=== PATIENT | female | born 2000 | race Caucasian/White ===

== ENCOUNTER 2021-11-18 08:00 | Outpatient (CLI) | payer BC, OTHER, SELFPAY | END 2021-11-18 08:01 | disposition home or self-care (01) | LOC: ANHAUDASC 08:03 | PROVIDERS: PCP Pediatrics; Visit Provider Nurse Practitioner Family | DX: H93.13 Tinnitus, bilateral (principal) | CPT/HCPCS: 92557; 92567 ==

== ENCOUNTER 2025-07-03 13:13 | Emergency (ER) | payer BC, SELFPAY ==
--- OUTSIDE RECORDS SUMMARY | 2020-12-17 08:00 | XMS_ITS | Continuity of Care Document ---
Author Organization [facility] Address [address] [place] [address] Phone Care Team Providers Care Oxygen Equipment Aide Name Role Phone Ky OSORIO MD, [place] Unavailable Bette vailable Allergies, Adverse Reactions, Alerts Substance Reaction Status Criticality Penicillins Rash Active No Information Procedures Procedure Date Pre Payment Advance Directives Directive Yes / No Effective Date File Name No Information Encounters Encounter Description Practice Location Reason(s) For Visit Diagnoses Date Provider Providers Copied on Encounter [facility], [address] [place] [address], [id number], tel:[phone] [facility] lumbar (chief complaint)g eneral orthopedic (chief complaint) Low back painCervicalgia 1 Ky OSORIO Adarsh er. [address] [facility], [address], [id number] , [place]. tel: [phone] [facility], [address] [place] [address], [id number], [phone] [facility] No Information 1 Ky Altamirano er. [address] [facility], [place] [address], [place], [place], [id number] , [place]. tel: [phone] Family History Family Member Type Diagnosis Age At Onset Mother Problem (finding) Kidney Disease Payers Payer name Insurance type Covered democrat ID Authoriza tion(s) [employer] [id number] Social History Type Description Quantity Date Captured Comments Alcohol Use Details Unknown Caffeine Use Details Unknown Tobacco Use Status No Information Smoking Status Never smoker Non-Smoking Tobacco Use Details : No Details Available : No Details Available Sex Female Vital Signs Date / Time: Height Weight BMI Pulse Rate Blood Pressure Temperature Respiratory Rate Body Surface Area Head Circumference Head Circ. Percentile Wt./Rich. Percentile BMI percentile Pulse Ox Inhaled Ox 2:34 PM 67.00 in 55.338 kg (122.00 lbs) 19.1 1 kg/m eter (2) Chief Complaint And Reason For Visit From encounter dated '12/17/2020 14:00'. lumbar (chief complaint). Description: De comes into the office for an Independent medical exam. general orthopedic (chief complaint). Description: Dr. Victorino McphersonBoard CertifiedOrthopedic Surgeon with Fellowship Training [facility] [address], [address]. [place], [place] [address]RkyjxDe Black is a pleasant 20-year-old female who presents for an independent medical examination regarding a work-related injury sustained on 07/07/2020. She is accompanied by an adult female today. On that date, the patient reports that she was putting away boxes of frozen fish weighing approximately 45 pounds, per her report. She states that she put a box away, and after she twisted and picked up another box, the first box fell and struck her on the lateral aspect of the left leg at the level of the knee. She states that this box fell without her noticing it, and she notes that she did not drop the box she was holding and instead lowered it down normally. The patient reports that she had immediate pain in her low back, and notes that she began to have numbness and pain up her back into her neck approximately 10 minutes later. 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 She was seen at an emergency room after her shift that night, where she wasdiagnosed with a lumbar strain and was given muscle relaxers. The patient reports that the night of injury, she began to have pain in her neck while lying in bed to sleep, worse on the right than theleft. She notes that she did have numbness in her bilateral upper extremities into the hands and fingertips, involving the thumb, index, and ring fingers on the left and the thumb and index finger onthe right. This pain did resolve and has not recurred. The patient also began to experience pain rad iation down her right lower extremity to the knee 1 week following the incident. She reports that after 1 to 2 months of formal physical therapy, her right leg pain has become waxing and waning. Her main complaint since her injury has been mostly low back pain, particularly with long periods of standing and long periods of resting. Today, the patient describes pain primarily in the her low back about the PSIS, as well as in the left hip anteriorly with radiation posteriorly and in the right groin. She denies pain in her lower extremities currently. Prolonged periods of immobility, including standing and sitting, exacerbate her pain complaints. Sitting on surfaces without lumbar support cause s burning pain up her back. Movement does exacerbate her pain complaints, but she states that she is able to ignore it more. The patient reports that she has intermittent pain in the neck, which typically starts on the right before migrating to the left. This has improved for a total of 3 weeks since the injury; otherwise, this pain has been present since that date. She notes that it has improved, but is still present; however, it increased recently following a right rib head dislocation sustained at work while lifting a 10-pound box of catfish. The rib dislocation was reduced by a chiropractor, who told her that this was caused by inflammation in her back as a result of her initial injury. The patient relates that her symptoms of burning pain in the ribs and pain while breathing from the rib dislocation did resolve 1 month following the relocation, apart from occasional aching rib pain.The patient denies seeing any surgeons for her neck or back since her initial injury. She denies undergoing any injections up to this point. Her interventions have largely included formal physical therapy and hemodialysis patient care specialist. She states that she feels that she has improved well with these interventions as she is more mobile than she was following her injury. However, she feelsthat her symptoms have come to a standstill and she is not yet back to normal.The patient is currently working at light duty in the same job position. She states that she has sustained additional injuries at work since 07/2020, including a laceration to the finger and a rib head dislocation on the right. Reason For Referral Reason For Referral No Information History Of Present Illness Encounter Date Complaint History Of Vern ely Illness general orthopedic Dr. Adarsh McphersonBoard Certified Orthopedic Surgeon with Fellowship Training in Spine Surgery[address], [address], [place] [address]MokubDe Black is a pleasant 20-year-old female who presents for an independent medical examination regarding a work-related injury sustained on 07/07/2020. She is accompanied by an adult female today. On that date, the patient reports that she was putting away boxes of frozen fish weighing approximately 45 pounds, per her report. She states that she put a box away, and after she twisted and picked up another box, the first box fell and struck her on the lateral aspect of the left leg at the level of the knee. She states that this box fell without her noticing it, and she notes that she did not drop the box she was holding and instead lowered it down normally. The patient reports that she had immediate pain in her low back, and notes that she began to have numbness and pain up her back into her neck approximately 10 minutes later. 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 She was seen at an emergency room after her shift that night, where she was diagnosed with a lumbar strain and was given muscle relaxers. The patient reports that the night of injury, she began to have pain in her neck while lying in bed to sleep, worse on the right than the left. She notes that she did have numbness in her bilateral upper extremities into the hands and fingertips, involving the thumb, index, and ring fingers on the left and the thumb and index finger on the right. This pain did resolve and has not recurred. The patient also began to experience pain radiation down her right lower extremity to the knee 1 week following the incident. She reports that after 1 to 2 months of formal physical therapy, her right leg pain has become waxing and waning. Her main complaint since her injury has been mostly low back pain, particularly with long periods of standing and long periods of resting. Today, the patient describes pain primarily in the her low back about the PSIS, as well as in the left hip anteriorly with radiation posteriorly and in the right groin. She denies pain in her lower extremities currently. Prolonged periods of immobility, including standing and sitting, exacerbate her pain complaints. Sitting on surfaces without lumbar support causes burning pain up her back. Movement does exacerbate her pain complaints, but she states that she is able to ignore it more. The patient reports that she has intermittent pain in the neck, which typically starts on the right before migrating to the left. This has improved for a total of 3 weeks since the injury; otherwise, this pain has been present since that date. She notes that it has improved, but is still present; however, it increased recently following a right rib head dislocation sustained at work while lifting a 10-pound box of catfish. The rib dislocation was reduced by a chiropractor, who told her that this was caused by inflammation in her back as a result of her initial injury. The patient relates that her symptoms of burning pain in the ribs and pain while breathing from the rib dislocation did resolve 1 month following the relocation, apart from occasional aching rib pain.The patient denies seeing any surgeons for her neck or back since her initial injury. She denies undergoing any injections up to this point. Her interventions have largely included formal physical therapy and hemodialysis patient care specialist. She states that she feels that she has improved well with these interventions as she is more mobile than she was following her injury. However, she feels that her symptoms have come to a standstill and she is not yet back to normal.The patient is currently working at light duty in the same job position. She states that she has sustained additional injuries at work since 07/2020, including a laceration to the finger and a rib head dislocation on the right. sedrick Kc comes into the office for an Independent medical exam. Functional Status Date Functional Assessmen t No Information Instructions Date Instruction Additional Infor gera Plan of Care: De Black is a pleasant 20-year-old female who had an injury in 07/2020 that has resulted in somatic complaints of low back pain with an overall generalized feeling of tightness that persists over the bilateral PSIS, into the right groin, and into the left superior trochanteric region with prolonged periods of immobility. She also describes glywx-yxyqvap-dnph-left neck pain that initially did improve with conservative care, but persists overall. Additionally, the patient reports a secondary injury during her course of recovery when she was lifting a 10 pound box of catfish and suffered a right-sided rib head dislocation, per her report, that was reduced by a chiropractor. This did significantly improve her symptoms, with respect to the new pain around the thoracic region in a thoracic radicular fashion.The medical record documentation of this Provider's service encounter was entered by Michaela Ramírez, acting as Electric Operator for Victorino Mcpherson MD. Related to Low back pain Assessments Type Assessment Date assessment Low back pain assessment Cervicalgia Patient Care Teams Name Effective Dates (start - stop) Status Members No Information
[2025-07-03] VITALS (13 sets, daily range): BP systolic 113–134; BP diastolic 68–79; PULSE 67–86; RESP 15–20; TEMP 36.3; O2SAT 97–100
--- NOTE | ~2025-07-03 | US_ITS ---
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 Findings: Uterus: Uterus anteverted 8.7 x 4.3 x 5.6 cm. IUD noted in appropriate location in the uterine cavity. . Endometrium measures 5 mm. Right Ovary:Right ovary 4 x 2.2 x 2.3 cm, no adnexal mass, no abnormal flow. Left Ovary: Left ovary 6 x 4.5 x 4.1 cm, no adnexal mass, normal flow. There is a large cystic left ovarian lesion measuring 4.5 x 4 cm. Free Fluid: None Impression: 1. IUD in appropriate location. Probable functional left ovarian cyst. Follow-up recommended in 6 weeks to assess resolution Reviewed, dictated and finalized at location P. R MACHINE OPERATOR HELPER Impression: 1. IUD in appropriate location. Probable functional left ovarian cyst. Follow-u p recommended in 6 weeks to assess resolution
--- NOTE | ~2025-07-03 | CT_ITS ---
EXAMINATION: CT abdomen pelvis wo con DATE: 07/03/2025 15:23 INDICATION: Lower abdomen pain. UTI. Hematuria. TECHNIQUE: Computed tomography (CT) of the abdomen and pelvis was performed without intravenous contrast. The dose-length product was 184.96 mGy-cm. Automated exposure control and iterative reconstruction technique were employed. COMPARISON: None. FINDINGS: Lung bases unremarkable. Heart size normal. No significant pleural or pericardial effusion. The liver, spleen, pancreas, adrenal glands and kidneys are unremarkable. Nonobstructive bowel gas pattern. There is an IUD in the uterus. There is a left adnexal cyst measuring 4.7 x 3.4 cm, likely ovarian. Trace free fluid in the pelvis. No free air. Gallbladder is present. No acute osseous abnormality. IMPRESSION: 1. Left adnexal cyst measuring 4.7 cm, likely ovarian. Reviewed, dictated and finalized at location O. MOTIVE MANUFACTURER
[2025-07-03 14:20] LABS: BEDSIDEPREGUCG Negative (Negative)
--- OUTSIDE RECORDS SUMMARY | 2025-07-03 14:27 | XMS_ITS | Clinical Summary ---
Author Organization [facility] Address [address] Attn: Epic Prelude ADT FIDEL YAÑEZ [id number] Care Team Providers Care Coding Quality Coordinator Name Role Phone Unavailable Primary Care Provider Unavailabl e Medications aluminum chloride (Drysol) 20 % Solution Apply to areas of excessive sweating at bedtime 60 mL 6 01/15/2024 6:25 PM CDT 4 Active hydrOXYzine HCL (ATARAX) 25 mg tablet Take 1 tablet by mouth 3 times a day as needed, for panic attacks. 90 Tablet 6 07/15/2024 4:38 PM TANNING CONSULTANT 4 Active escitalopram oxalate (LEXAPRO) 10 mg tablet Take 1 Tablet (10 mg) by mouth daily. 90 Tablet 1 07/15/2024 4:38 PM TANNING CONSULTANT 4 Active buPROPion HCL (WELLBUTRIN XL) 150 mg Extended Release 24 hour tablet Take 1 Tablet (150 mg) by mouth daily. 30 Tablet 6 01/19/2025 1:16 PM CDT 5 Active Social History Tobacco Use Types Packs/Day Years Used Date Smoking Tobacco: Never Assessed Comments Unknown Sex and Gender Information Value Date Recorded Sex Assigned at Not on file Legal Sex Female 3:26 PM CDT Gender Identity Not on file Sexual Orientation Not on file Plan of Treatment Health Maintenance Due Date Last Done Comments HPV VACCINES (1 - 3-dose series) 2015 DTAP/TDAP/TD VACCINES (1 - Tdap) 2019 HEPATITIS B VACCINES (1 of 3 - 19+ 3-dose series) 08/31 CERVICAL CANCER SCREENING 2021 HPV/Cotest (21-29) 2021 PAP SMEAR 2021 INFLUENZA VACCINE (#1) 2025 Insurance RX [employer] (INTERNAL) [facility] [employer] [facility]
--- OUTSIDE RECORDS SUMMARY | 2025-07-03 14:27 | XMS_ITS | Clinical Summary ---
Author Organization [facility] Address [address] [place] [address] Care Team Providers Care Converting Supervisor Name Role Phone Unknown, Provider Primary Care Provider Unavaila ble Source Comments [facility],non-owned Affiliates and Associated Physician Practices is amultiple site organization consisting of ambulatory clinics and hospital sitesin [place], [place], [place] and [place]. This disclosure is being madepursuant to the Care Everywhere program and may not contain all information available regarding this patient. Last updated 18.[facility] Allergies Active Allergy Reactions Criticality Noted Date Comments Acetaminophen Other 05/26/2020 I don't act normal Amoxicillin Rash Medium 05/26/2020 Medications * Be aware that medications may not be up to date on this document. Alwaysverify current medications with the patient. 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 Gender Identity Not on file Sexual Orientation Not on file Last Filed Vital Signs Vital Sign Reading Time Taken Comments Blood Pressure 124/76 06/21/2020 2:40 PM CDT Pulse 66 06/21/2020 2:40 PM CDT Temperature 36.9 C (98.4 F) 06/14/2020 4:19 PM CDT Respiratory Rate 16 06/14/2020 4:19 PM CDT Oxygen Saturation 99% 06/14/2020 4:19 PM CDT Inhaled Oxygen Concentration - - Weight 57.2 kg (126 lb) 06/21/2020 2:40 PM CDT Height 170.2 cm (5' 7) 06/21/2020 2:40 PM CDT Body Mass Index 19.73 06/21/2020 2:40 PM CDT Plan of Treatment Health Maintenance Due Date Last Done Comments HIV SCREENING 2015 HPV VACCINE (1 - 3-dose series) 2015 CHLAMYDIA/GONORRHEA SCREENING 2016 HEPATITIS C SCREENING 09/13/2018 DTAP/TDAP/TD VACCINES (1 - Tdap) 2019 HEPATITIS B VACCINE (1 of 3 - 19+ 3-dose series) 2019 DEPRESSION SCREENING 08/31/2024 COVID-19 VACCINE (1 - 2023-2 5 season) 2025 INFLUENZA VACCINE (#1) 2025 ZOSTER VACCINE (1 of 2) 2050 HIB VACCINE Aged Out No longer eligi ble based on patient's age to complete this topic MENINGOCOCCAL (Group B) VACC INE SHARED DECISION-MAKING Aged Out No longer eligibl e based on patient's age to complete this topic MENINGOCOCCAL GROUPS A/C/Y/W VACCINE Aged Out No longer eligible b ased on patient's age to complete this topic PNEUMOCOCCAL VACCINE Aged Out No long er eligible based on patient's age to complete this topic Insurance [employer] Care Teams Converting Supervisor Relationship Specialty Start Date End Date Unknown, Provider PCP - General 05/26/20
--- OUTSIDE RECORDS SUMMARY | 2025-07-03 14:27 | XMS_ITS | Data Portability ---
Author Organization [facility] Address [address] [place] [address] Assessment Encounter Date Assessment Date Assessment LastModified by Organization Details LastModified Time 11/10/2024 11/10/2024 Annual gynecological exam performed. Patient will come back in a year unless there are new symptoms. [email or web address] Not available 11/10/2024 14:38:59 Plan of Treatment Reminders Order Date Submit Date Provider Last Modified By Organization Details Last Modified Time Details Appointments None recorded. Lab pap, IG + reflex HPV if ASC-U - if hpv positive run subtyping 16, 18/45 2024 025 [facility] (Lab), [address], [place], [address], 5 11:34:19 Referral None recorded. Procedures None recorded. Surgeries None recorded. Imaging US, transvagina l 2020 021 [email or web address] [facility], [address], [address], [place], [address], 20:25:43 Medication Orders None recorded. Patient TargetsNo targets recorded. Patient InstructionsNo instructions recorded. Reason for Referral None Reported. Results Created Date Observation Date Name Description Value Unit Range Abnormal Flag Note LastModifiedBy Organization Detail LastModifiedTime 07/18/20 21 07/18/2021 CT/GC AND TRICH OMONA S VAGIN LIN (RRNA ), SWAB chlamydia trachomatis, PCR Negati ve negati ve Not Available [facility] (Lab) [address], [place], [address], 07/19/2021 15:08:17 07/18/20 21 07/18/2021 CT/GC AND TRICH OMONA S VAGIN LIN (RRNA ), SWAB neisseria gonorrhoeae, PCR Negati ve negati ve Not Available [facility] (Lab) [address], [place], [address], 07/19/2021 15:08:17 07/18/20 21 07/18/2021 CT/GC AND TRICH OMONA S VAGIN LNI (RRNA ), SWAB trichomonas vaginalis ribosomal RNA (rrna) Negati ve negati ve Not Available [facility] (Lab) [address], [place], [address], 07/19/2021 15:08:17 07/18/20 21 07/18/2021 VAGIN ITIS/ VAGIN OSIS, DNA PROBE lyndon sp. detection, direct probe Negati ve negati ve Not Available [facility] (Lab) [address], [place], [address], 07/19/2021 15:08:18 07/18/20 21 07/18/2021 VAGIN ITIS/ VAGIN OSIS, DNA PROBE gardnerella vag. detection, direct probe Negati ve negati ve Not Available [facility] (Lab) [address], [place], [address], 07/19/2021 15:08:18 07/18/20 21 07/18/2021 VAGIN ITIS/ VAGIN OSIS, DNA PROBE trichomonas vag. detection, direct probe Negati ve negati ve Not Available [facility] (Lab) [address], [place], [address], 07/19/2021 15:08:18 08/08/20 21 08/08/2021 IMAGE GUIDE D PAP, REFLE X HPV IF ASCUS ONLY image guided Pap, reflex HPV ASCUS only SEE RESULT S BELOW CASE REPOR T: Cytol ogy Gynec ologi navjot Repor t Case: [id number] Autho rafael angeles Provi olga: Mary Rodrigez, CNJannette Colle cted: 08/08 1537 Order ing Locat ion: [place] Patho betty Steelei preeti: 08/09 0105 First Scree n: Lety Martin, CT Speci men: Scree margaret Pap - Image d, Cervi x STATE MENT OF ADEQU ACY: Satis facto ry for evalu ation Trans forma tion zone compo nent prese nt FINAL DIAGN OSIS: Negat latanya for Intra epith elial Lesio n or Willie mejia (NIL) . Elect kimberly crowley breanne d by Lety Martin, CT on 08/16 at 12:03 AM ----- ----- ----- ----- ----- ----- ----- ----- ----- ----- ----- ----- ----- ----- ----- ----- ----- ---- COMME NT: Note: This speci men was revie wed by a Cytot echno logis t and/o r Patho logis t (as indic ated in this repor t) after evalu ation using the Thinp rep Imagi ng Syste m. CLINI NAVJOT INFOR MATIO N: Menst rual Statu s: LMP (if appli cable ): Clini navjot Histo ry/Pr eviou s Pap: Type of Neopl zeyad (if appli cable ): Signi fican t Clini navjot Findi ngs: Other Histo ry: Hormo kenzie (if appli cable ): PAP EDUCA RODERICK L NOTE: The Pap Test is a scree margaret test with an inher ent false negat latanya rate. Liqui d-bas e sampl ing may decre ase, but will not elimi andra, false negat latanya resul ts. A negat latanya resul t does not precl ude the prese nce and/o r devel opmen t of disea se, since the prese nce of abnor mal cells in the sampl e depen ds on the locat ion of the lesio n and sampl ing techn ique. Aj nued regul ar scree margaret is the best metho d of cance r preve ntion . If repor lisa cytol ogic findi ng do not corre late with physi navjot and/o r histo rical findi ngs, furth er inves tigat ion is recom avery d, as clini ruth strickland nted. Not Available [facility] (Lab) [address], [place], [address], 08/16/2021 01:07:11 09/02/19 22 09/02/2021 BHCG, QUANT ITATI VE B-HCG <0.2 mIU/m L This assay was perfo rmed using [employer] ratio n reage nts and test kits. Value s obtai cathi with other assay metho ds or kits canno t be used inter bonner eably . Refer ence Range s: Non-p regna nt, preme nopau aris women : 0.0-5 .3 mIU/m L Postm enopa usal women : 0.0-7 .0 mIU/m L Mesha l Pregn ezra: Gesta roderick l Age bHCG Conc. - mIU/m L 3 Weeks 5.8 - 71.7 4 Weeks 9.5 - 750 5 Weeks 217-7 138 6 Weeks 158 - 31,79 5 7 Weeks 3,697 - 162,5 63 8 Weeks 32,06 5 - 149,5 71 9 Weeks 63,80 3 - 151,4 10 10 Weeks 46,50 9 - 186,9 77 12 Weeks 27,83 2 - 210,6 12 14 Weeks 13,95 0 - 62,53 0 15 Weeks 12,03 9 - 70,97 1 16 Weeks 9,040 - 56,45 1 17 Weeks 8,175 - 55,86 8 18 Weeks 8,099 - 58,17 6 Not Available [facility] (Lab) [address], [place], [address], 09/03/2021 02:41:13 11/11/19 25 11/10/2024 IMAGE GUIDE D PAP, REFLE X HPV IF ASCUS ONLY image guided Pap, reflex HPV ASCUS only SEE RESULT S BELOW CASE REPOR T: Cytol ogy Gynec ologi navjot Repor t Case: [id number] Autho rafael angeles Provi olga: Georginao rik, Carie , ANP, DIRECTOR OF ONCOLOGY Colle cted: 11/10 1545 Order ing Locat ion: [place] Patho logy Recei preeti: 11/11 1108 First Scree n: Migdalia Syed, CT Speci men: Virginia robles Pap - Image d, Cervi x STATE MENT OF ADEQU ACY: Satis facto ry for evalu ation Trans forma tion zone compo nent prese nt ----- ----- ----- ----- ----- ----- ----- ----- ----- ----- ----- ----- ----- ----- ----- ----- ----- ---- FINAL DIAGN OSIS: Negat latanya for Intra epith elial Lesio n or Willie mejia (NIL) . Elect kimberly mclain by Migdalia Syed, CT on 2024 at 1029 CDT ----- ----- ----- ----- ----- ----- ----- ----- ----- ----- ----- ----- ----- ----- ----- ----- ----- ---- COMME NT: This speci men was revie wed by a Cytot echno logis t and/o r Patho logis t (as indic ated in this repor t) after evalu ation using the Thinp rep Imagi ng Syste m. CLINI NAVJOT INFOR MATIO N: Menst rual Statu s: LMP (if appli cable ): Clini navjot Histo ry/Pr eviou s Pap: Type of Neopl zeyad (if appli cable ): Signi fican t Clini navjot Findi ngs: Other Histo ry: Hormo kenzie (if appli cable ): PAP EDUCA RODERICK L NOTE: The Pap Test is a scree margaret test with an inher ent false negat latanya rate. Liqui d-bas ed sampl ing may decre ase, but will not elimi andra, false negat latanya resul ts. A negat latanya resul t does not precl ude the prese nce and/o r devel opmen t of disea se, since the prese nce of abnor mal cells in the sampl e depen ds on the locat ion of the lesio n and sampl ing techn ique. Aj nued regul ar scree margaret is the best metho d of cance r preve ntion . If repor lisa cytol ogic findi ng do not corre late with physi navjot and/o r histo rical findi ngs, furth er inves tigat ion is recom avery d, as clini ruth warra nted. Not Available [facility] (Lab) [address], [place], [address], 11/16/2024 11:34:19 07/22/20 21 07/22/2021 US, trans vagin al No observ ation record ed. [email or web address] [facility] [address], [place], [address], 07/22/2021 11:46:54 07/22/20 21 07/22/2021 US, trans vagin al No observ ation record ed. [email or web address] [facility] [address], [place], [address], 07/22/2021 20:20:16 Result Notes Documentation Provider Name and Address Organization Details Recorded Time Pap, Ig + Reflex Hpv If Asc-u : ok to file nl no pp frida [facility], [place] - [facility] 08/22/2021 11:55:58 Problems Name Problem SNOMED Code Status Onset Date Resolution Date Notes Provider Name and Address Organization Details Recorded Time Dysmenor gloria 645802744 Completed 201307/17/2021 Dysmenorr hea;Recor ded Elsewhere : No Locati on: [facility] So urce: EHR Chron ic: N Practic e ID: [id number] Bill able Time: 03:00:00 PM Radha Canales [facility] 20:25:24 Speciali zed medical examinat ion Completed 201407/17/2021 Routine gynecolog ical examinati on;Practi ce ID: 0001 Radha Canales [facility] 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 20:25:[address] Concept Completed 201507/17/2021 Encntr for routine child health exam w/o abnormal findings; Recorded Elsewhere : No Locati on: [facility] So urce: EHR Chron ic: N Practic e ID: [id number] Bill able Time: 03:00:00 PM Radha Canales [facility] 20:25:33 Surveill ance of contrace ption Completed 201507/17/2021 Encounter for surveilla nce of contracep tives, unspecifi ed;Record ed Elsewhere : No Locati on: [facility] So urce: EHR Chron ic: N Practic e ID: 0001 Bill able Time: 03:00:00 PM Radha magdaleno [facility] 20:25:43 Vulval tear 349994947 Completed 201607/17/2021 Laceratio n w foreign body of vagina and vulva, init encntr;Pr actice ID: 0001 Radha Canales [facility] 20:25:46 Lacerati on of vagina 147623897 Completed 201607/17/2021 Laceratio n w foreign body of vagina and vulva, init encntr;Pr actice ID: 0001 Radha Canales [facility] 20:25:26 Obstetri c perineal wound disrupti on 149863835 Completed 201607/17/2021 Disruptio n of wound of perineal laceratio n;Recorde d Elsewhere : No Locati on: [facility] So urce: EHR Chron ic: N Practic e ID: 0001 Bill able Time: 01:30:00 PM Radha [facility] 20:25:29 Problem Notes None recorded. Procedures Surgical History Date Name Laterality Status Provider Name and Address Organization Details Recorded Time 09/03/19 22 IUD Insertion completed Rufino Mak MD [address], [place], [address], [facility] 09/03/2021 11:30:53 08/08/20 21 Date of Last Pap Smear completed Malreni Addison [facility] 08/08/2021 14:04:10 07/22/20 21 IUD Removal completed Rufino Mak MD [address], [place], [address], [facility] 07/22/2021 15:26:27 Appendectomy completed Radha Canales [facility] 07/18/2021 10:46:22 Imaging Results None recorded. Procedure Notes None recorded. Medical Equipment None Reported. Allergies Allergen ID Allergen Name Allergen Category Reaction Reaction Severity Criticality Documentation Date Start Date Code Code System Note Provider Name and Address Organization Details Recorded Time 62195 acetamino phen medicatio n nausea mild Not available 07/18/2021 161 RxNorm Radha [facility] 10:44:01 70700 Penicilli n Not available hives moderate Not available 07/18/2021 65937 RxNorm Radha Canales [place], [place] - [facility] 10:44:01 Medications Name Sig Start Date Stop Date Status Note LastModified by Organization Details LastModified Time cyclobenz aprine 10 mg tablet 11/10 completed Not Available Not Available Not Available Mirena 21 mcg/24 hr (up to 8 years) 52 mg intrauter ine device Take by intraute rine route. active Not Available Not Available No t Available Loestrin Fe 09/19 (28-Day) 1 mg-20 mcg (21)/75 mg (7) tablet Take 1 tablet every day by oral route. 08/21 completed Not Available Not Available Not Available Diflucan 150 mg tablet take 1 tablet by oral route once 07/17 completed Prescrib ed Elsewher e: No Locat ion: [facility] odify By: maciej mcintosh DateTime : 11/11/19 01:22:17 PM Not Available Not Available Not Available methocarb santino 750 mg tablet TAKE 1 TABLET BY MOUTH 3 TIMES A DAY FOR 5 DAYS 11/10 completed Not Available Not Available Not Available fluoxetin e 10 mg capsule take 2 capsule by oral route every day 08/05 completed Prescrib ed Elsewher e: Yes Loca tion: [facility] odify By: linsey mcintosh DateTime : 12/02/19 02:30:00 PM Not Available Not Available Not Available hydroxyzi ne HCl 25 mg tablet active Not Available Not Available No t Available ibuprofen 600 mg tablet Take 1 tablet 3 times a day by oral route as needed for 7 days. 08/05 completed Not Available Not Available Not Available escitalop samanta 10 mg tablet active Not Available Not Available Not Available Mononessa (28) 0.25 mg-35 mcg tablet take 1 tablet by oral route every day 04/06 completed Prescrib ed Elsewher e: No Locat ion: [facility] odify By: mino Page [email or web address] DateTime : 01/08/20 17 12:03:17 PM Not Available Not Available Not Available escitalop samanta 5 mg/5 mL oral solution take 10 millilit er by oral route every day 04/09 completed Prescrib ed Elsewher e: Yes Loca tion: [facility] odify By: alok mcintosh DateTime : 03/08/20 15 03:30:00 PM Not Available Not Available Not Available cyclobenz aprine 5 mg tablet Take 1 tablet 3 times a day by oral route as needed for 7 days. 08/05 completed Not Available Not Available Not Available Wellbutri n XL 150 mg 24 hr tablet, extended release Take 1 tablet every day by oral route. active Not Available Not Available No t Available Mirena 08/05 completed Not Available Not Available Not Available Lo Loestrin Fe 1 mg-10 mcg (24)/10 mcg (2) tablet take 1 tablet by oral route every day 07/18 completed Prescrib ed Elsewher e: No Locat ion: [facility] odify By: mino tz Jackou nter DateTime : 12/02/19 19 02:30:00 PM Not Available Not Available Not Available Otezla Starter 11/10 completed Not Available Not Available Not Available Skyrizi 150 mg/mL subcutane ous pen injector active Not Available Not Available Not Available Vitals Date Recorded Body height Body mass index (BMI) Body mass index (BMI) [Percentile] Per age and sex Body weight Systolic And Diastolic Provider Name and Address Organization Details Last Updated DateTime 09/03/2021 167.64 cm 19.4 kg/m2 20 % 31758.0 8 g 110/75 mm[Hg] [facility] 11:23:22 Date Recorded Body height Body mass index (BMI) Body weight Systolic And Diastolic Provider Name and Address Organization Details Last Updated DateTime 09/30/2021 167.64 cm 18.9 kg/m2 73534.31 g 113/77 mm[Hg] [facility] 09/30/2021 10:12:03 Date Recorded Body height Body mass index (BMI) Body weight Systolic And Diastolic Provider Name and Address Organization Details Last Updated DateTime 11/10/2024 172.72 cm 19.2 kg/m2 77681.36 g 115/81 mm[Hg] Lorena Helm [facility] 11/10/2024 14:45:42 Date Recorded Body height Body mass index (BMI) Body mass index (BMI) [Percentile] Per age and sex Body weight Systolic And Diastolic Provider Name and Address Organization Details Last Updated DateTime 07/22/2021 167.64 cm 20 kg/m2 27 % 21231.4 5 g 128/79 mm[Hg] Isabela Wiseman [facility] 15:05:55 Date Recorded Body height Body mass index (BMI) Body mass index (BMI) [Percentile] Per age and sex Body weight Systolic And Diastolic Provider Name and Address Organization Details Last Updated DateTime 08/08/2021 167.64 cm 19.4 kg/m2 20 % 51423.0 8 g 127/80 mm[Hg] Marleni Azael [facility] 12:35:38 Social History Question Answer Notes LastModified by Organizat ion Details LastModified Time Tobacco Smoking Status Never Smoker Isabela Wiseman [facility] 09/30/2021 10:12:08 Do You Have An Advance Directive? No Information n ot available 07/18/2021 Are You Blind Or Do You Have Difficulty Seeing? No Information n ot available 07/17/2021 What Is Your Level Of Caffeine Consumption? Moderate Information not available 07/18/2021 How Much Tobacco Do You Chew? None Information not available 07/18/2021 In The 14 Days Before Symptom Onset, Have You Had Close Contact With A Laboratory-confirm ed COVID-19 While That Case Was Ill? No Information n ot available 07/18/2021 In The 14 Days Before Symptom Onset, Have You Had Close Contact With A Person Who Is Under Investigation For COVID-19 While That Person Was Ill? No Information not available 07/18/2021 Have You Been To An Area Known To Be High Risk For COVID-19? No Information not available 07/18/2021 Are You Deaf Or Do You Have Serious Difficulty Hearing? No Information not available 07/17/2021 What Type Of Diet Are You Following? REGULAR Information n ot available 07/17/2021 What Is The Highest Grade Or Level Of School You Have Completed Or The Highest Degree You Have Received? [id number] [email or web address] Information not available 11/10/2024 Are There Any Guns Present In Your Home? No Information not available 07/18/2021 Do You Use Protection During Sex? Always Information not available 07/18/2021 Do You Use Your Seat Belt Or Car Seat Routinely? Yes Information not available 07/17/2021 Do You Have Smoke And Carbon Monoxide Detectors In Your Home? Yes Information not available 07/17/2021 How Much Tobacco Do You Smoke? No Information not available 07/18/2021 Do You Use Sunscreen Routinely? Yes [email or web address] Information not available 11/10/2024 Have You Used IV Drugs? No Information not available 07/18/2021 Sex: Unknown Functional Status Question Answer Note LastModified by [employer] ion Details LastModified Time Do you use any illicit or recreational drugs? No Information not available 07/17/2021 What is your level of alcohol consumption? None Information not available 07/17/2021 Are you able to walk independently without assistance or assistive devices? [email or web address] Information not available 07/17/2021 What is your occupation? None [email or web address] Information not available 11/10/2024 What is your exercise level? Occasional Information not available 07/18/2021 Mental Status Question Answer Note LastModified by Organization D etails LastModified Time Do you feel stressed (tense, restless, nervous, or anxious, or unable to sleep at night)? [id number] Information not available 11/10/2024 Family History Relationship Description Onset Age of this Age Resolved Age Notes LastModified by Organization Details LastModified Time Maternal Grandfather Hypertensive disorder Not available 2020 10:44:05 Maternal Grandmother Hypertensive disorder Not available 2020 10:44:05 Paternal Grandmother Malignant neoplasm of cervix uteri Not available 20:26:54 Mother Cyst of ovary precan cerous cells Not available 11/10/2024 14:37:59 Paternal Uncle Substance abuse Not available 2020 10:44:05 Medical History Condition Response Urinary Tract Infection Y Gynecological History Statement/Question Response Abnormal Pap N On BCP's at Conception? N N STIs/STDs N Was last menstrual period normal Y HPV Vaccine N 13 Current Control Method IUD Sexually Active? Y N/A Age of first menstrual cycle 13 Date of Last Pap Smear 08/08/2021 Sexual Problems? N Desired Control Method IUD LMP Unknown N Obstetrics History GPAL:G 0 P 0 0 0 0 Past Encounters Encounter ID Performer Location Encounter Start Date Encounter Closed Date Diagnosis/Indication Diagnosis SNOMED-CT Code Diagnosis ICD10 Code Diagnosis IMO Codes Diagnosis Note [id number] Donna Mccain [facility] [address],[facility] [place] [address] 07/18/2021 09:51:52 07/18/2021 11:47:43 Pain in pelvis 64360057 R10.2 Patient is to contact office or go to nearest ED/Urgent care if fever >/= 100.1, pain, excessive bleeding, unusual drainage or swelling in area of concern; or experienci ng worsening sx's or new onset of concerning sx's. Understand ing verbalized . [place]. [id number] Rufino Mak MD [facility] [address],[facility] [place] [address] 07/22/2021 10:10:08 07/22/2021 11:31:20 Mechanical complication of intrauterine contraceptive device 873441702 T83.39XA [id number] Rufino Mak MD [facility] [address] [address] 07/22/2021 14:23:38 07/22/2021 15:29:58 Contraception care management [id number] Z30.9 IUD removal was performed. She tolerated the procedure well. She was given precaution s and instructio ns on control pills. She will have an IUD replaced in 4-8 weeks. [id number] Mary Mckeon CNM [facility] [address] [address] 08/08/2021 12:19:03 08/08/2021 14:13:30 Gynecologic examination 50480566 Z01.419 Z11.3 Z11.8 Take Calcium with Vitamin D 1200mg daily if not receiving in daily diet. It is strongly advised to have an annual flu shot and up can obtain at most pharmacies . If you have not had a TDap shot in the last 10 years you should obtain one as well.Pap done today. Pt is just about a month out from her 21st birthday and has IUD scheduled. Discussed with patient & provided with informatio n regarding Gardisil vaccine to prevent the 4 strains for HPV that cause cervical cancer if under age 26. Encourage safe sexual practices, to use condoms and limit partners if not already in a monogamous relationsh ip. Do monthly self breast exams. Have mammogram yearly or every other year depending on family history. BRCA testing is now available for patients with strong genetic history of female cancer. If interested contact the office. Engage in daily exercise of low impact aerobic exercise 45-60 minutes 4-5 times weekly. Avoid tobacco and illicit drugs as well as using moderation with alcohol intake less than 1-2 8 oz beverages daily. This lifestyle behavior pattern will lead to less health conditions and longer life span. If BMI greater than 25 weight watchers or dietary consult advised. Patient received above stacy peacock, and questions have been answered. If you have any questions please call or respond to this email. Patient was made aware of the patient portal and may obtain a paper copy of today's plan if desired. [id number] Rufino Mak MD [facility] [address] [address] 09/03/2021 10:45:08 09/03/2021 11:41:51 Contraception care management 479072268 Z30.9 IUD removal was performed. She tolerated the procedure well. She was given precaution s and stacy peacock on control pills. She will have an IUD replaced in 4-8 weeks. [id number] Rufino Mak MD [facility] [address] [address] 09/30/2021 09:51:32 09/30/2021 11:10:58 Contraception care management 570686922 Z30.9 This patient is a 21 y/o female who presents for IUD check. She had a IUD inserted approximat luan 1 month ago. She has no complaints . She denies any excessive bleeding or pain. She has had some cramping and some spotting. Otherwise, she feels that is going well and wants to continue her IUd [id number] Rufino Mak MD [facility] [address] [address] 11/10/2024 14:37:45 11/10/2024 15:01:50 Gynecologic examination 65961519 Z01.419 Annual gynecologi navjot exam performed. Patient will come back in a year unless there are new symptoms. Suggest Calcium with Vitamin D if not eating in diet. Patient advised to get annual flu shot. Recommend yearly physicals and perform monthly breast exams. Genetic testing is available for patients with family history of cancer. Engage in safe sexual practices, use condoms. Encouraged to have daily exercise. Avoid tobacco and illicit drugs, moderation of alcohol. If BMI greater than 25 dietary consult advised. If you have any questions please call or email. Pap smear- pap w/ HPV collected laboratory evaluation - PCP STI testing - declined A Mirena IUD prevents for up to 8 years, and also helps with heavy periods for up to 5 years in women who choose an IUD for control. Mirena expires 09/03/2029. Health Concerns Section Related Observation LastModified by Organization Detai ls LastModified Time None Recorded Concern Status LastModified by Organization Details LastModified Time None Recorded Advance Directives Directive N: Payers Insurance Date Sequence Insurance Name Policy Number Policy Marroquin Covered Member ID Marroquin Member ID Guarantor Name 09/02/2021 1 [employer] Waldo Padilla [id number] De Sofia 07/18/2021 1 [employer] [id number] Waldo Padilla [id number] De Sofia 11/09/2024 1 [id number] De Sofia [id number] De Sofia 11/07/2024 [id number] Waldo Padilla [id number] De Sofia 10/27/2024 2 [facility] () [id number] Tree Bullock [id number] De Sofia Notes Date Note Type Note Provider Name and Address Organization Details Recorded Time 1 text/html this patient is a 20-year-old female with an embedded IUD. We agreed to attempt IUD removal today. Rufino Mak MD [address], [place], [address], [facility] 07/22/2021 15:27:24 1 text/html Annual GYNReported by PatientGenitourinary symptomsFor menstrual cycle, patient reportsnormal menses. For urinary symptoms, patient reportsno hematuriaandno incontinence. For vulva, patient reportsno genital lesion. For vagina, patient reportsnormal vaginal discharge.Breast symptomsFor breast, patient reportsno breast pain,no breast lump, andno nipple discharge.Endocrine symptomsFor sexual complaints, patient reportsno sexual complaints,no pain during intercourse, andnormal libido. For menopausal symptoms, patient reportsno menopausal symptomsandnormal vaginal lubrication.Psychological symptomsFor psychological symptoms, patient reportsno depression,no anxiety, andno pmdd. Random cramping but feels like it is improving since removal of IUD. Has been taking ocp since removal. Insert of new IUD is scheduled for August. Mary magdaleno, [facility] 08/08/2021 14:01:02 2 text/html Patient presents for IUD insertion. Rufino Mak MD [address], [place], [address], [facility] 09/03/2021 11:31:31 2 text/html This patient is a 21 y/o female who presents for IUD check. She had a IUD inserted approximately 1 month ago. She has no complaints. She denies any excessive bleeding or pain. She has had some cramping and some spotting. Otherwise, she feels that is going well and wants to continue her IUd Rufino Mak MD [address], [place], [address], [facility] 09/30/2021 11:06:28 5 text/html Annual GYNReported by PatientGenitourinary symptomsFor urinary symptoms, patient reportsno hematuriaandno incontinence. For vulva, patient reportsno genital lesion. For vagina, patient reportsnormal vaginal discharge. For menstrual cycle, (no periods with iud).Breast symptomsFor breast, patient reportsno breast pain,no breast lump, andno nipple discharge.ContraceptionFo r current contraception, patient reportssatisfied with current contraceptionandintrauter ine device (iud).Endocrine symptomsFor sexual complaints, patient reportsno sexual complaints,no pain during intercourse, andnormal libido. For menopausal symptoms, patient reportsno menopausal symptomsandnormal vaginal lubrication.Psychological symptomsFor psychological symptoms, patient reportsno depression,no anxiety, andno pmdd.Preventative measuresFor preventive measures, patient reportsencourage self breast examination,encourage regular exercise,encourage no tobacco use, andencourage regular mammograms starting age 40. Patient presents for annual well woman exam. Patient denies concerns today. Lorena magdaleno, [facility] 11/10/2024 15:12:57 OBGyn Episode No OBEpisode recorded.
--- OUTSIDE RECORDS SUMMARY | 2025-07-03 14:27 | XMS_ITS | Clinical Summary ---
Author Organization [facility] Address [address] [place] [id number] Care Team Providers Care Fire Sprinkler Installer Name Role Phone Lawanda Crespo FISH CUTTING MACHINE OPERATOR Primary Care Provider [phone] Allergies Active Allergy Reactions Criticality Noted Date Comments Acetaminophen Other (see comment) 05/26/2020 I don't act normal Amoxicillin Rash Medium 05/26/2020 Social History Tobacco Use Types Packs/Day Years Used Date Smoking Tobacco: Never Smokeless Tobacco: Never Tobacco Cessation:Counseling Given: Not Answered Alcohol Use Standard Drinks/Week Comments Never 0 (1 standard drink = 0.6 oz pur e alcohol) Comments No Sex and Gender Information Value Date Recorded Sex Assigned at Not on file 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 Gender Identity Not on file Sexual Orientation Not on file Last Filed Vital Signs Vital Sign Reading Time Taken Comments Blood Pressure 122/100 04/14/2024 7:47 PM CDT Pulse 71 04/14/2024 7:47 PM CDT Temperature 36.3 C (97.3 F) 04/14/2024 7:47 PM CDT Respiratory Rate 18 04/14/2024 7:47 PM CDT Oxygen Saturation 100% 04/14/2024 7:47 PM CDT Inhaled Oxygen Concentration - - Weight 52.8 kg (116 lb 6.5 oz) 04/14/2024 7:47 P M CDT Height 170.2 cm (5' 7) 04/14/2024 7:47 PM CDT Body Mass Index 18.23 04/14/2024 7:47 PM CDT Plan of Treatment Health Maintenance Due Date Last Done Comments Cervical Cancer Screening Pa p Smear (Age 21 to 29) Every 3 Years 2000 Cervical Cancer Screening 2000 Annual Physical 2003 HPV Vaccines (1 - 3-dose series) 2015 Hepatitis C 2018 DTaP, Tdap and Td Vaccines ( 1 - Tdap) 2019 Hepatitis B Vaccines (1 of 3 - 19+ 3-dose series) 2019 COVID-19 Vaccine (1 - 2024-2 6 season) 2025 Influenza Adult (#1) 2025 Hepatitis A Vaccines Aged Out No long er eligible based on patient's age to complete this topic Meningococcal B Vaccine Aged Out No l onger eligible based on patient's age to complete this topic Meningococcal Vaccine Aged Out No dalila demi eligible based on patient's age to complete this topic Pneumococcal Vaccine: Pediat rics (0 to 5 Years) and At-Risk Patients (6 to 49 Years) Aged Out No longer eligible b ased on patient's age to complete this topic RSV Immunizations Under 20 Months Aged Out No longer eligible based on patient's age to complete this topic Insurance [employer] Care Teams Fire Sprinkler Installer Relationship Specialty Start Date End Date Lawanda Crespo NP [address] [address] PCP - General NURSE PRACTITIONER 04/14/24
[2025-07-03 14:31] LABS: Hematocrit 38.2 % (37.0-47.0); Hemoglobin 12.8 g/dL (12.0-15.0); Immature Granulocyte Percent A 0.5 % (0-0.5); Lymphocytes Absolute Auto 2.35 K/mm3 (0.9-3.2); Mean Corpuscular HGB Conc 33.5 g/dl (32-36); Mean Corpuscular Hemoglobin 30.8 pg (26-34); Mean Corpuscular Volume 92.0 fl (80-100); Nucleated Red Blood Cells Absolute Auto 0.000 K/mm3 (0.0-0.012); Nucleated Red Blood Cells Perc 0.0 % (0.0-0.2); Platelet Count Result 230 k/mm3 (150-375); Red Blood Count 4.15 M/mm3 (4.2-5.4); White Blood Count 17.7 K/mm3 (4.5-10.0)
[2025-07-03 14:35] LABS: Need Manual Microscopic Reviewed; Non Pathogenic Casts 0-2
[2025-07-03 14:43] LABS: Add Urine Microscopic? YES
[2025-07-03 14:55] LABS: Alanine Aminotransferase 23 U/L (6-35); Albumin Level 4.6 g/dL (3.5-5.1); Alkaline Phosphatase 55 U/L (38-126); Anion Gap 7 mmol/L (4-12); Aspartate Amino Transferase 29 U/L (14-36); Bilirubin,Total 0.7 mg/dL (0.2-1.3); Blood Urea Nitrogen 7 mg/dL (7-17); Calcium 9.4 mg/dL (8.4-10.2); Carbon Dioxide 24 mmol/L (22-30); Chloride 104 mmol/L (98-107); Estimated CRCL calculation 116 ml/min; Estimated Glomerular Filt Rate > 60; Glucose 87 mg/dL (65-110); Potassium 3.9 mmol/L (3.4-5.0); Sodium 135 mmol/L (137-145); Total Protein 7.7 g/dL (6.3-8.2)
--- NOTE | 2025-07-03 15:26 | ED_ITS ---
HPI - Female Genitourinary General Chief complaint: Urogenital-Female Stated complaint: blood clots in urine today. Time Seen by Provider: 07/03/25 14:10 Source: patient Mode of arrival: ambulatory Limitations: no limitations History of Present Illness HPI Narrative: Patient is a 24-year-old female who presents the ED with report of hematuria. Patient reports she developed gross hematuria this morning. Reports blood clots in her urine. Reports urinary frequency and urgency. Reports history of frequent UTIs in the past, but states it has been several years since her last infection. Does feel similar to previous UTIs. Denies ever having visible blood. Reports some lower abdominal cramping. Denies back pain. Denies history of kidney stones. Denies nausea, vomiting, fevers. Related Data Allergies Allergy/AdvReac Type Severity Reaction Status Date / Time acetaminophen (From Tylenol) Allergy Mild Hives Verified 07/03/25 14:16 Penicillins Allergy Mild Hives Verified 07/03/25 14:16 Review of Systems 2 Review of Systems: All systems reviewed & are unremarkable except as noted in HPI. All systems reviewed & are unremarkable except as noted in HPI and below Exam 2 Narrative: GENERAL: Well appearing, thin, non-toxic, in no acute distress. HEAD: Normocephalic, atraumatic. RESPIRATORY: Airway patent, respirations nonlabored. Clear to auscultation bilaterally, no rales, rhonchi, wheezing. CARDIOVASCULAR: Regular rate and rhythm without murmurs, rubs, or gallops. ABDOMINAL: Soft, no significant focal tenderness, nondistended. Normoactive BS. No CVA tenderness. MUSCULOSKELETAL: Moves all extremities. No gross deformities. SKIN: Warm, dry, normal color. NEURO: A&O X3. Speech clear. Cranial nerves II-XII grossly intact. Steady gait. No ataxic movements. PSYCHIATRIC: Appropriate mood and affect. Normal interaction. Course Vital Signs Vital signs: Vital Signs Temperature 97.3 F L 07/03/25 13:18 Pulse Rate 86 07/03/25 13:18 Respiratory Rate 20 07/03/25 13:18 Blood Pressure 134/68 07/03/25 13:18 Pulse Oximetry 100 07/03/25 13:18 Oxygen Delivery Room Air 07/03/25 13:18 Temperature 97.3 F L 07/03/25 13:18 Pulse Rate 68 07/03/25 14:25 Respiratory Rate 15 07/03/25 14:25 Blood Pressure 116/77 07/03/25 14:25 Pulse Oximetry 100 07/03/25 14:25 Oxygen Delivery Room Air 07/03/25 13:18 MDM - Female Genitourinary MDM Narrative Medical decision making narrative: Patient presented to ED with urinary tract infection symptoms, gross hematuria. History of UTIs in the past. Vital signs stable upon arrival. Afebrile. Patient in no acute distress. Cbc with blood cell count of 17.7. Neutrophil predominance. No bandemia. CMP is unremarkable. Urinalysis with greater than 100 RBC/WBC. Sent for culture. Will treat. Urine is negative. Given dose of Rocephin in the ED. CT scan of abdomen/pelvis obtained and without evidence of ureterolithiasis or pyelonephritis. Does show left adnexal cyst, likely ovarian. Will obtain ultrasound to further evaluate. US showing functional L ovarian cyst, no concerning findings, no evidence of torsion. IUD in place. Discussed lab and imaging findings with patient. She has remained stable throughout ED stay. Feel she is safe for discharge home on oral antibiotics. Did discuss elevated white blood cell with patient and advised her to have close follow-up with PCP, very strict return precautions. Also recommended follow-up with OBGYN for evaluation of ovarian cyst. She voiced understanding. Feels comfortable going home. Discharged in stable condition. Medical Records Attestation: I reviewed the patient's medical records. Lab Data Attestation: I reviewed the patient's lab results. 07/03/25 14:26 07/03/25 14:26 Labs: Lab Results 07/03/25 07/03/25 07/03/25 Range/Units 14:12 14:18 14:26 WBC 17.7 H (4.5-10.0) K/mm3 RBC 4.15 L (4.2-5.4) M/mm3 Hgb 12.8 (12.0-15.0) g/dL Hct 38.2 (37.0-47.0) % MCV 92.0 (80-100) fl MCH 30.8 (26-34) pg MCHC 33.5 (32-36) g/dl RDW 12.7 (11.5-14.5) % Plt Count 230 (150-375) k/mm3 MPV 9.3 (7.4-10.4) fl Immature Gran % (Auto) 0.5 (0-0.5) % Neut % (Auto) 80.8 H (45.5-73.1) % Lymph % (Auto) 13.3 L (18.3-44.2) % [place] % (Auto) 5.1 (2.6-8.5) % Eos % (Auto) 0.2 (0-4.4) % Baso % (Auto) 0.1 L (0.2-1.2) % Lymph # (Auto) 2.35 (0.9-3.2) K/mm3 [place] # (Auto) 0.9 H (0.1-0.6) K/mm3 Eos # (Auto) 0.0 (0-0.3) K/mm3 Baso # (Auto) 0.0 (0.0-0.1) K/mm3 Abs Immat Gran (auto) 0.08 H (0.00-0.031) K/mm3 Absolute Neuts (auto) 14.3 H (1.3-6.7) K/mm3 Absolute Nucleated RBC 0.000 (0.0-0.012) K/mm3 Nucleated RBC % 0.0 (0.0-0.2) % Sodium 135 L (137-145) mmol/L Potassium 3.9 (3.4-5.0) mmol/L Chloride 104 (98-107) mmol/L Carbon Dioxide 24 (22-30) mmol/L Anion Gap 7 (4-12) mmol/L BUN 7 (7-17) mg/dL Creatinine 0.53 L (0.7-1.0) mg/dL Estim Creat Clear Calc 116 ml/min Estimated GFR > 60 (59 - ) Glucose 87 (65-110) mg/dL Calcium 9.4 (8.4-10.2) mg/dL Total Bilirubin 0.7 (0.2-1.3) mg/dL AST 29 (14-36) U/L ALT 23 (6-35) U/L Alkaline Phosphatase 55 (38-126) U/L Total Protein 7.7 (6.3-8.2) g/dL Albumin 4.6 (3.5-5.1) g/dL Urine Color Red H (Yellow) Urine Appearance TNP Urine pH TNP Ur Specific Hartman TNP Urine Protein TNP Urine Glucose (UA) TNP Urine Ketones TNP Ur Blood (Man) TNP Urine Nitrate TNP Urine Bilirubin TNP Urine Urobilinogen TNP Add Ur Microanalysis Reviewed Leukocyte Esterase Rfl TNP Urine RBC >100 H (0-2) /hpf Urine WBC >100 H (0-3) /hpf Ur Squamous Epith Cells Occasional (Few) /hpf Urine Bacteria Rare /hpf Urine Casts 0-2 POC Urine HCG, Qual Negative (Negative) Imaging Data Attestation: I personally reviewed and interpreted this imaging study as follows: Radiologist's impression: ITS Impressions Abdomen/Pelvis CT 07/03/25 15:24 IMPRESSION: 1. Left adnexal cyst measuring 4.7 cm, likely ovarian. Pelvis Ultrasound 07/03/25 16:10 Impression: 1. IUD in appropriate location. Probable functional left ovarian cyst. Follow-up recommended in 6 weeks to assess resolution Discharge Plan Discharge Clinical Impression: Gross hematuria, Left ovarian cyst Urinary tract infection Qualifiers: Urinary tract infection type: acute cystitis Hematuria presence: with hematuria Qualified Code(s): N30.01 - Acute cystitis with hematuria Patient Disposition: Home Condition: Stable Instructions: Antibiotic Form, Urinary Tract Infection in Women (ED), Hematuria (ED) Additional Instructions: Take antibiotics as prescribed for urinary tract infection. Stay well hydrated. Recommend Tylenol/ibuprofen as needed for pain. Return to the ED if you experience worsening or severe pain, unable to keep down food/drink/abx, difficulty urinating, worsening blood in urine, persistent fevers, or any other symptoms of concern. Recommend follow-up with OBGYN for further evaluation of left-sided ovarian cyst. Patient Language: Martiniquais Prescriptions: New cephalexin 500 mg capsule 500 mg PO Q12H 7 Days Qty: 14 0RF Follow-up/Referrals: PHYSICIAN,CRAFT CENTER DIRECTOR [Primary Care Provider, Internal Medicine] Time of Disposition: 16:51
[2025-07-03] MEDS: SODIUM CHLORIDE 0.9% IV 1,000 ML 999 ML IV CONT (15:32)
[2025-07-03] MEDS: cefTRIAXone 1 GM in SODIUM CHLORIDE 0.9% IV 50 ML 100 ML IVPB (15:33)
== END 2025-07-03 17:00 | disposition home or self-care (01) ==
PROVIDERS: Emergency Provider Physician Assistant
DX: N30.01 Acute cystitis with hematuria (principal); N83.202 Unspecified ovarian cyst, left side
CPT/HCPCS: 36415; 74176; 76856; 80053; 81001; 81025; 85025; 87086; 87186; 96361; 96365; 99284; J0696; J7030